=== PATIENT | male | born 1995 | race Caucasian/White ===

== ENCOUNTER 2021-11-25 23:47 | Emergency (ER) | payer OTHER ==
[2021-11-25 23:53] VITALS: TEMP 101.8
[2021-11-26] MEDS ORDERED: SODIUM CHLORIDE 0.9% 1,000 ML IV STA (01:03)
[2021-11-26] MEDS ORDERED: ONDANSETRON 4 MG/2 ML VIAL IVP STA (01:05)
[2021-11-26 01:54] LABS: ALT 131 U/L (4-49); AST 150 U/L (17-59); African American GFR (CKD) >90 (>60 ml/min/1.73 sqM); Albumin 4.4 g/dL (3.5-5.0); Alkaline Phosphatase 160 U/L (38-126); Anion Gap 10 mmol/L; Blood Urea Nitrogen 14 mg/dL (9-20); Calcium 9.3 mg/dL (8.4-10.2); Carbon Dioxide 26 mmol/L (22-30); Chloride 95 mmol/L (98-107); Glucose 117 mg/dL (74-99); Lipase 90 U/L (23-300); Non-African American GFR(CKD) >90 (>60 ml/min/1.73 sqM); Potassium 3.8 mmol/L (3.5-5.1); Sodium 131 mmol/L (137-145); Total Bilirubin 1.5 mg/dL (0.2-1.3); Total Protein 7.6 g/dL (6.3-8.2)
[2021-11-26] MEDS ORDERED: PIPERACILLIN-TAZOBACTAM 4.5 GM in SODIUM CHLORIDE 0.9% 100 ML IVPB STA (01:58)
--- NOTE | 2021-11-26 01:58 | XR ---
EXAMINATION TYPE: XR chest 2V DATE OF EXAM: 11/26/2021 COMPARISON: NONE HISTORY: Nausea. Dizziness TECHNIQUE: 2 view FINDINGS: Heart and mediastinum are normal. Lungs are clear. Diaphragm is normal. Bony thorax appears normal. IMPRESSION: Normal chest.
--- NOTE | 2021-11-26 01:59 | ED ---
Nausea/Vomiting/Diarrhea HPI - General Chief complaint: Nausea/Vomiting/Diarrhea Stated complaint: dizziness Time Seen by Provider: 11/26/21 01:03 Source: patient, RN notes reviewed Mode of arrival: ambulatory Limitations: no limitations - History of Present Illness Initial comments: This is a pleasant 26-year-old male who presents to the emergency department complaining of nausea, vomiting. Denies any respiratory distress or cough. No sore throat or earache. Patient has had a fever as well. No hematemesis or coffee-ground emesis. No melena or hematochezia. Patient has no significant past medical history. No ill contacts. No recent travel. Patient immunized against COVID-19. No headache,, no changes in vision or hearing, no sore throat or difficulty with speech, no neck pain, no chest pain or shortness of breath, no abdominal pain, no changes in urination, no numbness or tingling, no extremity pain, no skin ra shes or lesions. - Related Data Previous Rx's Medication Instructions Recorded Ibuprofen 400 mg PO Q6H PRN #30 tab 11/26/21 Ondansetron [Zofran ODT] 4 mg PO Q8HR #20 tab 11/26/21 Allergies Allergy/AdvReac Type Severity Reaction Status Date / Time shellfish derived [Shellfish] Allergy Anaphylaxis Verified 11/25/21 23:52 Review of Systems ROS Statement: Those systems with pertinent positive or pertinent negative responses have been documented in the HPI. ROS Other: All systems not noted in ROS Statement are negative. Past Medical History Past Medical History: No Reported History History of Any Multi-Drug Resistant Organisms: None Reported Past Surgical History: No Surgical Hx Reported Past Psychological History: No Psychological Hx Reported Smoking Status: Never smoker Past Alcohol Use History: Occasional Past Drug Use History: None Reported General Exam - General Exam Comments Initial Comments: Mild distress Limitations: no limitations General appearance: alert, in distress Head exam: Present: atraumatic, normocephalic, normal inspection Eye exam: Present: normal appearance, PERRL, EOMI. Absent: scleral icterus, conjunctival injection, periorbital swelling ENT exam: Present: normal exam, normal oropharynx, mucous membranes moist, TM's normal bilaterally. Absent: mucous membranes dry, normal external ear exam Neck exam: Present: normal inspection, full ROM. Absent: tenderness, meningismus, lymphadenopathy Respiratory exam: Present: normal lung sounds bilaterally. Absent: respiratory distress, wheezes, rales, rhonchi, stridor Cardiovascular Exam: Present: normal rhythm, tachycardia, normal heart sounds. Absent: systolic murmur, diastolic murmur, rubs, gallop, clicks GI/Abdominal exam: Present: soft, tenderness (Right upper quadrant), guarding (Right upper quadrant), normal bowel sounds. Absent: distended, rebound, rigid Extremities exam: Present: normal inspection, full ROM, normal capillary refill. Absent: tenderness, pedal edema, joint swelling, calf tenderness Back exam: Present: normal inspection Neurological exam: Present: alert, oriented X3, CN II-XII intact Psychiatric exam: Present: normal affect, normal mood Skin exam: Present: warm, dry, intact, normal color. Absent: rash, cyanosis, diaphoretic, erythema, urticaria, vesicles, petechiae, pallor, mottled, abrasion Course Vital Signs 11/25/21 11/26/21 11/26/21 23:49 02:30 03:00 Temperature 101.8 F H Pulse Rate 119 H 98 91 Respiratory 20 18 Rate Blood Pressure 144/97 146/87 132/81 O2 Sat by Pulse 95 95 96 Oximetry 11/26/21 03:30 Temperature Pulse Rate 94 Respiratory Rate Blood Pressure 128/82 O2 Sat by Pulse 94 L Oximetry - Reevaluation(s) Reevaluation #1: 11/26/21 01:59 Medical record is reviewed Nausea is improved. Patient is informed of results and questions answered Patient in no distress Reevaluation #2: 11/26/21 03:10 Medical record is reviewed Symptoms are improved here in the emergency department Patient is informed of results and questions answered Patient in no distress , Patient's heart rate improved. Capillary refill less than 2 seconds. Good skin color. Cardiac regular rate and rhythm, no murmur, lungs are clear peripheral pulses are 2+ out of 4 Medical Decision Making - Medical Decision Making Plan for reevaluation. Patient's chest x-ray is nondiagnostic. COVID-19 testing and other viral testing is negative. - Lab Data Result diagrams: 11/26/21 01:35 11/26/21 01:35 Lab Results 11/25/21 11/26/21 11/26/21 Range/Units 23:55 01:35 01:35 WBC 5.7 (3.8-10.6) k/uL RBC 5.47 (4.30-5.90) m/uL Hgb 15.8 (13.0-17.5) gm/dL Hct 45.1 (39.0-53.0) % MCV 82.5 (80.0-100.0) fL MCH 28.8 (25.0-35.0) pg MCHC 34.9 (31.0-37.0) g/dL RDW 13.3 (11.5-15.5) % Plt Count 219 (150-450) k/uL MPV 7.2 Neutrophils % (Manual) 36 % Band Neuts % (Manual) 4 % Lymphocytes % (Manual) 28 % Monocytes % (Manual) 31 % Eosinophils % (Manual) 1 % Neutrophils # (Manual) 2.20 (1.3-7.7) k/uL Lymphocytes # (Manual) 1.60 (1.0-4.8) k/uL Monocytes # (Manual) 1.77 H (0-1.0) k/uL Eosinophils # (Manual) 0.06 (0-0.7) k/uL Nucleated RBCs 0 (0-0) /100 WBC Manual Slide Review Performed RBC Morphology Normal Sodium 131 L (137-145) mmol/L Potassium 3.8 (3.5-5.1) mmol/L Chloride 95 L (98-107) mmol/L Carbon Dioxide 26 (22-30) mmol/L Anion Gap 10 mmol/L BUN 14 (9-20) mg/dL Creatinine 1.10 (0.66-1.25) mg/dL Est GFR (CKD-EPI)AfAm >90 (>60 ml/min/1.73 sqM) Est GFR (CKD-EPI)NonAf >90 (>60 ml/min/1.73 sqM) Glucose 117 H (74-99) mg/dL Plasma Lactic Acid [place] (0.7-2.0) mmol/L Calcium 9.3 (8.4-10.2) mg/dL Total Bilirubin 1.5 H (0.2-1.3) mg/dL AST 150 H (17-59) U/L ALT 131 H (4-49) U/L Alkaline Phosphatase 160 H (38-126) U/L Total Protein 7.6 (6.3-8.2) g/dL Albumin 4.4 (3.5-5.0) g/dL Lipase 90 (23-300) U/L Urine Color Urine Appearance (Clear) Urine pH (5.0-8.0) Ur Specific [place] (1.001-1.035) Urine Protein (Negative) Urine Glucose (UA) (Negative) Urine Ketones (Negative) Urine Blood (Negative) Urine Nitrite (Negative) Urine Bilirubin (Negative) Urine Urobilinogen (<2.0) mg/dL Ur Leukocyte Esterase (Negative) Urine WBC (0-5) /hpf Ur Squamous Epith Cells (0-4) /hpf Amorphous Sediment (None) /hpf Urine Bacteria (None) /hpf Hyaline Casts (0-2) /lpf Urine Mucus (None) /hpf Heterophile Antibody (Negative) Influenza Type A (PCR) Not Detected (Not Detectd) Influenza Type B (PCR) Not Detected (Not Detectd) RSV (PCR) Not Detected (Not Detectd) SARS-CoV-2 (PCR) Not Detected (Not Detectd) 11/26/21 11/26/21 11/26/21 Range/Units 01:35 01:36 03:41 WBC (3.8-10.6) k/uL RBC (4.30-5.90) m/uL Hgb (13.0-17.5) gm/dL Hct (39.0-53.0) % MCV (80.0-100.0) fL MCH (25.0-35.0) pg MCHC (31.0-37.0) g/dL RDW (11.5-15.5) % Plt Count (150-450) k/uL MPV Neutrophils % (Manual) % Band Neuts % (Manual) % Lymphocytes % (Manual) % Monocytes % (Manual) % Eosinophils % (Manual) % Neutrophils # (Manual) (1.3-7.7) k/uL Lymphocytes # (Manual) (1.0-4.8) k/uL Monocytes # (Manual) (0-1.0) k/uL Eosinophils # (Manual) (0-0.7) k/uL Nucleated RBCs (0-0) /100 WBC Manual Slide Review RBC Morphology Sodium (137-145) mmol/L Potassium (3.5-5.1) mmol/L Chloride (98-107) mmol/L Carbon Dioxide (22-30) mmol/L Anion Gap mmol/L BUN (9-20) mg/dL Creatinine (0.66-1.25) mg/dL Est GFR (CKD-EPI)AfAm (>60 ml/min/1.73 sqM) Est GFR (CKD-EPI)NonAf (>60 ml/min/1.73 sqM) Glucose (74-99) mg/dL Plasma Lactic Acid [place] 1.1 (0.7-2.0) mmol/L Calcium (8.4-10.2) mg/dL Total Bilirubin (0.2-1.3) mg/dL AST (17-59) U/L ALT (4-49) U/L Alkaline Phosphatase (38-126) U/L Total Protein (6.3-8.2) g/dL Albumin (3.5-5.0) g/dL Lipase (23-300) U/L Urine Color Yellow Urine Appearance Cloudy (Clear) Urine pH 5.5 (5.0-8.0) Ur Specific [place] 1.030 (1.001-1.035) Urine Protein 1+ H (Negative) Urine Glucose (UA) Negative (Negative) Urine Ketones Trace H (Negative) Urine Blood Trace H (Negative) Urine Nitrite Negative (Negative) Urine Bilirubin Negative (Negative) Urine Urobilinogen 3.0 (<2.0) mg/dL Ur Leukocyte Esterase Negative (Negative) Urine WBC 2 (0-5) /hpf Ur Squamous Epith Cells <1 (0-4) /hpf Amorphous Sediment Few H (None) /hpf Urine Bacteria Rare H (None) /hpf Hyaline Casts 4 H (0-2) /lpf Urine Mucus Many H (None) /hpf Heterophile Antibody Negative (Negative) Influenza Type A (PCR) (Not Detectd) Influenza Type B (PCR) (Not Detectd) RSV (PCR) (Not Detectd) SARS-CoV-2 (PCR) (Not Detectd) Disposition Clinical Impression: Transaminitis, Acute vomiting, Viral syndrome Disposition: HOME SELF-CARE Condition: Stable Instructions (If sedation given, give patient instructions): Acute Nausea and Vomiting (ED) Additional Instructions: Call tomorrow morning and make a follow-up appointment your regular doctor. Your liver enzymes were elevated here. A hepatitis panel was added to your blood work. You may need further evaluation as outpatient. Your mononucleosis test was also negative however this may be a false negative test. Drink plenty of clear liquids. Follow-up with your regular physician as directed. Return to the ER immediately if any symptoms worsen, new symptoms arise, or any other problems develop. Is patient prescribed a controlled substance at d/c from ED?: No Referrals: Benjamín Biswas DO [Primary Care Provider] - 11/28/21 Time of Disposition: 04:04
[2021-11-26 02:33] VITALS: RESP 18
[2021-11-26 02:36] LABS: Amorphous Sediment,Urine Few /hpf; Appearance,Urine Cloudy (Clear); Bacteria,Urine Rare /hpf; Bilirubin,Urine Negative (Negative); Blood,Urine Trace (Negative); Color,Urine Yellow; Glucose,Urine (UA) Negative (Negative); Hyaline Casts,Urine 4 /lpf (0-2); Ketones,Urine Trace (Negative); Leukocyte Esterase,Urine Negative (Negative); Mucus,Urine Many /hpf; Nitrite,Urine Negative (Negative); PH, Urine 5.5 (5.0-8.0); Protein,Urine 1+ (Negative); Squamous Epithelial Cell,Urine <1 /hpf (0-4); WBC,Urine 2 /hpf (0-5)
[2021-11-26 02:39] LABS: HCT 45.1 % (39.0-53.0); HGB 15.8 gm/dL (13.0-17.5); MCH 28.8 pg (25.0-35.0); MCHC 34.9 g/dL (31.0-37.0); MCV 82.5 fL (80.0-100.0); Mean Platelet Volume 7.2; Platelet Count 219 k/uL (150-450); RBC 5.47 m/uL (4.30-5.90); RDW 13.3 % (11.5-15.5); WBC 5.7 k/uL (3.8-10.6)
[2021-11-26] MEDS: LACTATED RINGERS 1,000 ML IV SCH ×2 (03:00→04:06)
--- NOTE | 2021-11-26 03:10 | CT ---
EXAMINATION TYPE: CT abdomen pelvis w con DATE OF EXAM: 11/26/2021 COMPARISON: None HISTORY: RUQ ABD PAIN CT DLP: 3121.40 mGycm Automated exposure control for dose reduction was used. CONTRAST: Performed with IV Contrast, patient injected with 100 mL of Isovue 370. Images obtained from the diaphragm to the floor the pelvis with IV contrast. Lung bases are clear. There is no pleural effusion. Heart size is normal. No pericardial effusion. There is small hiatal hernia. Liver spleen pancreas appear intact. The bile ducts are nondilated. The re is small hiatal hernia. There is no adrenal mass. Kidneys show satisfactory contrast opacification . There is no hydronephrosis. The ureters are not dilated. There is no retroperitoneal adenopathy. Ap pendix is posterior and appears normal. Bladder distends smoothly. There is no inguinal hernia. No free fluid in the pelvis. No sign of a pel anival mass. There is no mesenteric edema. There is no ascites or free air. No sign of a bowel obstructi on. The lumbar vertebrae have normal alignment. Posterior elements are intact. No compression fracture. D isc spaces are normal. Bony pelvis is intact. The hip joints are intact. IMPRESSION: Negative CT scan abdomen and pelvis.
[2021-11-26 03:12] LABS: Band Neutrophils % 4 %; Eosinophils # (M) 0.06 k/uL (0-0.7); Monocytes # (M) 1.77 k/uL (0-1.0); Neutrophils % (M) 36 %; Nucleated Red Blood Cells 0 /100 WBC (0-0); Total Cells Counted 100
[2021-11-26 03:22] LABS: RBC Morphology Normal
[2021-11-26 03:42] VITALS: BP 128/82; PULSE 94
[2021-11-26] MEDS ORDERED: ONDANSETRON ODT 4 MG TAB PO STA (04:02)
[2021-11-26 09:39] LABS: Hepatitis A Antibody IgM Nonreactive (Nonreactive); Hepatitis B Core IgM Nonreactive (Nonreactive); Hepatitis B Surface Antigen Nonreactive (Nonreactive); Hepatitis C IgG Antibody Nonreactive (Nonreactive)
== END 2021-11-26 04:20 | disposition home or self-care (01) ==
LOC: EC 23:47
DX: R74.01 Elevation of levels of liver transaminase levels (principal); B34.9 Viral infection, unspecified; Z91.013 Allergy to seafood; Z20.822 Contact with and (suspected) exposure to COVID-19
CPT/HCPCS: 36415; 80053; 80074; 83605; 83690; 85025; 86308; 81001; 87040; 87636; 71046; 74177; 99284; 96365; 96375; 96361; J2543; J2405; Q9967